=== PATIENT | male | born 1985 | race Caucasian/White ===

== ENCOUNTER 2022-01-17 01:12 | Emergency (ER) | payer OTHER ==
[2022-01-17] MEDS ORDERED: Lidocaine 1% w/Epinephrine 1:100K 20 ML VIAL ONE (03:22)
[2022-01-17] MEDS ORDERED: Bacitracin 1 PK ONE (03:49)
== END 2022-01-17 04:20 ==
LOC: NAV ERS 01:12
DX: S02.2XXA Fracture of nasal bones, initial encounter for closed fracture (principal); S16.1XXA Strain of muscle, fascia and tendon at neck level, initial encounter; S01.01XA Laceration without foreign body of scalp, initial encounter; S20.212A Contusion of left front wall of thorax, initial encounter; S60.221A Contusion of right hand, initial encounter; S60.211A Contusion of right wrist, initial encounter; K21.9 Gastro-esophageal reflux disease without esophagitis; I10 Essential (primary) hypertension; Y04.8XXA Assault by other bodily force, initial encounter; Y92.149 Unspecified place in prison as the place of occurrence of the external cause
CPT/HCPCS: 12013; 70450; 70486; 72125